=== PATIENT | male | born 1960 | race Caucasian/White ===

== ENCOUNTER → 2017-05-27 | Outpatient (CLI) | payer OTHER ==
--- NOTE | 2017-05-28 17:12 | RADIOLOGY REPORT (SQ) ---
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 TECHNIQUE: Blood glucose level was verified. Above dose of FDG was injected intravenously. 2-D seg mented attenuation correction images were obtained from the base of the skull to the midthighs. Nonc ontrast CT images were obtained for attenuation correction and fusion with emission images. CT image s were performed without oral or intravenous contrast and are not sensitive for parenchymal lesions. A series of overlapping emission PET images were obtained. [facility] by the radiologist. Images stored on PACS. LIMITATIONS: None. FINDINGS: HEAD AND NECK: No areas of abnormal metabolic activity in the soft tissues of the head and neck. CHEST: No areas of abnormal metabolic activity in the chest. ABDOMEN AND PELVIS: No areas of abnormal metabolic activity in the abdomen or pelvis. Expected physi ologic activity is present in the genitourinary system and bowel. PROXIMAL LOWER EXTREMITIES: No areas of abnormal metabolic activity in the soft tissues of the lower extremities. BONES: No abnormal metabolic activity in the visualized skeleton. ADDITIONAL CT FINDINGS: No additional significant findings on the noncontrast CT images. OTHER: Blood pool activity SUV 1.8. Liver parenchymal background activity SUV 2.8. IMPRESSION: No hypermetabolic lesions worrisome for recurrent lymphoma. TECHNICAL DOCUMENTATION: JOB ID: [id number]- All Rights Reserved
== END ==
LOC: RAD 17:10
PROVIDERS: ATTEND Internal Medicine
DX: C82.18 Follicular lymphoma grade II, lymph nodes of multiple sites (principal)
CPT/HCPCS: 78815; A9552

== ENCOUNTER → 2019-02-09 | Outpatient (CLI) | payer OTHER ==
--- NOTE | 2019-02-10 10:46 | RADIOLOGY REPORT (SQ) ---
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 RADIONUCLIDE AND DOSE: 10 mCi F18 FDG The route of agent administration: Intravenous FASTING BLOOD SUGAR: 96 mg/dl CONTRAST TYPE AND DOSE: No CT contrast given. TECHNIQUE: Blood glucose level was verified. Above dose of FDG was injected intravenously. 2-D seg mented attenuation correction images were obtained from the base of the skull to the midthighs. Nonc ontrast CT images were obtained for attenuation correction and fusion with emission images. CT image s were performed without oral or intravenous contrast and are not sensitive for parenchymal lesions. A series of overlapping emission PET images were obtained. Images reviewed and manipulated at [facility] work [facility] by the radiologist. Images stored on PACS. LIMITATIONS: None. FINDINGS: HEAD AND NECK: No areas of abnormal metabolic activity in the soft tissues of the head and neck. CHEST: No areas of abnormal metabolic activity in the chest. ABDOMEN AND PELVIS: There is hazy appearance of the mesentery consistent with edema/inflammation. Th ere are numerous mesenteric lymph nodes which have increased in size since the prior PET scan. A few individual lymph nodes as follows: Image 154, lymph node measures 0.8 x 1.7 cm. Mean SUV 1.51. Image 170, lymph node measures 2.0 cm. Mean SUV 2.05. Image 177, lymph node measures 1.3 x 1.9 cm. Mean SUV 1.7. Image 184, lymph node measures 1.0 x 1.4 cm. Mean SUV 1.44. There is an enlarged lymph node in the left groin measuring 2.6 x 3.6 cm. Mean SUV 13.72. No other areas of abnormal metabolic activity in the abdomen or pelvis. Expected physiologic activit y is present in the genitourinary system and bowel. PROXIMAL LOWER EXTREMITIES: No areas of abnormal metabolic activity in the soft tissues of the lower extremities. BONES: There is focal increased activity in the body of L1. No abnormal appearance on CT imaging. ADDITIONAL CT FINDINGS: No additional significant findings on the noncontrast CT images. OTHER: Background blood pool activity mean SUV 1.8. Background liver activity mean SUV 2.33. No oth er significant findings. IMPRESSION: 1. ENLARGED HYPERMETABOLIC LYMPH NODE IN THE LEFT GROIN WITH MARKEDLY ELEVATED SUV CONSISTENT WITH MA LIGNANCY. 2. INTERVAL DEVELOPMENT OF MESENTERIC ADENOPATHY WITH MILDLY ELEVATED SUV VALUES ABOVE. 3. FOCAL AREA OF INCREASED ACTIVITY IN THE BODY OF L 1. NO ASSOCIATED ABNORMALITY ON CT IMAGES. REC OMMEND FOLLOW-UP WITH MRI OF THE LUMBAR SPINE. 4. NO OTHER AREAS OF ABNORMAL ACTIVITY ON PET IMAGING. TECHNICAL DOCUMENTATION: JOB ID: [id number] [employer]- All Rights Reserved Reading location - IP/workstation name: [email or web address]
== END ==
LOC: RAD 17:45
PROVIDERS: ATTEND Internal Medicine
DX: C82.18 Follicular lymphoma grade II, lymph nodes of multiple sites (principal)
CPT/HCPCS: 78815; A9552

== ENCOUNTER 2019-02-26 05:32 | Day surgery (SDC) | payer OTHER ==
[2019-02-21 09:46] LABS: HEMATOCRIT 41.6 % (37.9-51.0); HEMOGLOBIN 14.3 g/dL (13.5-17.0); MEAN CORPUSCULAR HGB CONC 34.3 g/dL (32.0-36.0); MEAN CORPUSCULAR VOLUME 87 fl (80-97); PLATELET COUNT 287 10^3/uL (150-450); RED BLOOD COUNT 4.76 10^6/uL (4.35-5.55); RED CELL DISTRIBUTION WIDTH 13.3 % (11.5-14.0); WHITE BLOOD COUNT 7.4 10^3/uL (4.0-10.5)
[2019-02-21 10:20] LABS: ANION GAP 9 (5-19); BLOOD UREA NITROGEN 12 mg/dL (7-20); CALCIUM 9.5 mg/dL (8.4-10.2); CARBON DIOXIDE 28 mmol/L (22-30); CHLORIDE 101 mmol/L (98-107); GLUCOSE 90 mg/dL (75-110); POTASSIUM 4.7 mmol/L (3.6-5.0); SODIUM 138.3 mmol/L (137-145)
--- NOTE | 2019-02-21 10:33 | RADIOLOGY REPORT (SQ) ---
EXAM DESCRIPTION: CHEST PA/LATERAL COMPLETED DATE/TIME: 02/21/2019 9:22 am REASON FOR STUDY: PRE OP COMPARISON: None. EXAM PARAMETERS: NUMBER OF VIEWS: two views TECHNIQUE: Digital Frontal and Lateral radiographic views of the chest acquired. RADIATION DOSE: NA LIMITATIONS: none FINDINGS: LUNGS AND PLEURA: No opacities, masses or pneumothorax. No pleural effusion. MEDIASTINUM AND HILAR STRUCTURES: No masses or contour abnormalities. HEART AND VASCULAR STRUCTURES: Heart normal size. No evidence for failure. BONES: No acute findings. HARDWARE: None in the chest. OTHER: No other significant finding. IMPRESSION: NO SIGNIFICANT RADIOGRAPHIC FINDING IN THE CHEST. TECHNICAL DOCUMENTATION: JOB ID: [id number] [employer]- All Rights Reserved Reading location - IP/workstation name: [email or web address]
--- NOTE | 2019-02-21 19:19 | EKG REPORT ---
SEVERITY:- NORMAL ECG - SINUS RHYTHM : Confirmed by: Alysha Tran MD 21-Feb-2019 19:18:28
[~2019-02-26 05:32] MED LIST: ACETAMINOPHEN 325 MG TABLET ONE; ACETAMINOPHEN 325 MG TABLET PO PRN; LACTATED RINGERS 1000 ML IV PRN; LIDOCAINE 0.5% INJ-PF (5 MG/ML) 50 ML SDV SUBCUT PRN; PREGABALIN 50 MG CAPSULE ONE; PREGABALIN 50 MG CAPSULE PO PRN
[2019-02-26 06:50] LABS: INTERNATIONAL RATION (INR) 1.09; PROTHROMBIN TIME 14.1 SEC (11.4-15.4)
[2019-02-26 06:51] LABS: PARTIAL THROMBOPLASTIN TIME 33.2 SEC (23.5-35.8)
[2019-02-26] MEDS ORDERED: MIDAZOLAM 2 MG/2 ML INJ ONE (07:05)
[2019-02-26] MEDS ORDERED: PROPOFOL INJ 200 MG/20 ML VIAL IV ONE (07:05)
[2019-02-26] MEDS ORDERED: KETOROLAC TROMETHAMINE 60 MG/2 ML SDV ONE (07:05)
[2019-02-26] MEDS ORDERED: FENTANYL CITRATE INJ/PF 100 MCG/2 ML AMPUL ONE (07:05)
[2019-02-26] MEDS ORDERED: DEXAMETHASONE SOD PHOSPHATE INJ 4 MG/1 ML VIAL ONE (07:05)
[2019-02-26] MEDS ORDERED: ONDANSETRON HCL INJ/PF 4 MG/2 ML SDV ONE (07:05)
[2019-02-26] MEDS ORDERED: LIDOCAINE 2% INJ (20 MG/ML) 20 ML MDV ONE (07:07)
[2019-02-26] MEDS ORDERED: BUPIVACAINE HCL 0.25 % INJ/PF (2.5 MG/1 ML) 30 ML VIAL ONE (07:16)
[2019-02-26] MEDS ORDERED: LIDOCAINE 1% INJ-PF (10 MG/ML) 30 ML SDV ONE (07:17)
[2019-02-26] MEDS ORDERED: CEFAZOLIN 2 GM/D5W RTU 2 GM/50 ML RTUPB IV ONE ×2 (07:26→08:00)
[2019-02-26] MEDS ORDERED: ONDANSETRON HCL INJ/PF 4 MG/2 ML SDV IV PRN (07:45)
[2019-02-26] MEDS ORDERED: FENTANYL CITRATE INJ/PF 100 MCG/2 ML AMPUL IV PRN ×3 (07:45)
[2019-02-26] MEDS ORDERED: PROMETHAZINE HCL INJ 25 MG/1 ML VIAL IV PRN (07:45)
[2019-02-26] MEDS ORDERED: DIPHENHYDRAMINE HCL 50 MG/ML VIAL IV PRN (07:45)
[2019-02-26] MEDS ORDERED: MORPHINE SULFATE 10 MG/ML INJ IV PRN (07:45)
[2019-02-26] MEDS ORDERED: MEPERIDINE HCL/PF INJ 25 MG/1 ML DISP.SYRIN IV PRN (07:45)
--- NOTE | 2019-02-26 08:59 | Discharge Summary ---
Discharge Summary (SDC) - Discharge Final Diagnosis: Lymphoma Date of Surgery: 02/26/19 Discharge Date: 02/26/19 Condition: Stable Treatment or Instructions: Discharge home. Diet as tolerated. Activity: Nonstrenuous. Follow-up with me in 7 to 10 days. [place] 5/325 mg p.o. every 6 hours as needed for pain. Avoid ibuprofen, Aleve, or other NSAIDs. Okay to shower in 48 hours. No tub baths or swimming pools x2 weeks. Referrals: BONNIE KAN MD [Primary Care Provider] - Discharge Diet: As Tolerated Respiratory Treatments at Home: Deep Breathing/Coughing, Incentive Spirometer Discharge Activity: Balance Activity w/Rest Home Care Assistance: None Needed Report the Following to Your Physician Immediately: Shortness of Breath, Nausea, Vomiting, Increase in Pain, Fever over 101 Degrees, Unusual Bleeding, Redness
--- NOTE | 2019-02-26 09:51 | Operative Report ---
Nonrecallable Operative Report DATE OF SURGERY: 02/26/19 PREOPERATIVE DIAGNOSIS: Lymphoma POSTOPERATIVE DIAGNOSIS: Same as above OPERATION: Excisional biopsy of left groin lymph node SURGEON: CHRIS BEY [facility] CL[facility]ICAL NURSE SPECIALIST: LORETA VÁZQUEZ ANESTHESIA: LMAC TISSUE REMOVED OR ALTERED: Left groin lymph node COMPLICATIONS: None apparent ESTIMATED BLOOD LOSS: Minimal PROCEDURE: Drains/implants: None. Procedure in detail: After informed consent was obtained, the patient was brought to the operating room and laid in the supine position. The area of the left groin was prepped and draped in a normal sterile fashion a 15 blade scalpel was used to make a 4 cm incision in the left groin. Dissection was carried through the subcutaneous tissue using Bovie electrocautery. The enlarged lymph node was easily palpable. It was freed from the surrounding tissues using electrocautery and blunt dissection. The stalk of the lymph node was ligated using 2-0 Vicryl ties. The enlarged lymph node was removed from the patient, passed off the field, and sent to pathology. Hemostasis was achieved using 3-0 Vicryl suture. The subcutaneous layer was closed using 3-0 Vicryl suture in simple interrupted fashion. The overlying skin was closed using 4-0 Vicryl Rapide suture in subcuticular fashion. All sponge, instrument, and needle counts were correct x2. Condition: Stable. Loreta Vázquez PA-C was scrubbed and present the entirety the procedure. She assisted with all portions of the procedure including opening of the skin, dissection of the lymph node, removal of the lymph node, closure of the subcutaneous tissue, and closure of the skin.
[2019-02-26 10:20] VITALS: BP 118/77
== END 2019-02-26 09:55 | disposition home or self-care (01) ==
LOC: OROUT 05:32
PROVIDERS: ATTEND Surgery
DX: R59.9 Enlarged lymph nodes, unspecified (principal); C82.10 Follicular lymphoma grade II, unspecified site; Z95.5 Presence of coronary angioplasty implant and graft; Z79.82 Long term (current) use of aspirin; Z79.899 Other long term (current) drug therapy
CPT/HCPCS: 93005; 36415 ×2; 85027; 85610; 85730; 80048; 88305 ×2; 71046; 93010; 00800; 38500; J2250; J3490 ×3; J3010; J2405; J2704; J0690; 800; J1100; J1885

== ENCOUNTER → 2019-08-05 | Outpatient (CLI) | payer OTHER ==
--- NOTE | 2019-08-06 09:44 | RADIOLOGY REPORT (SQ) ---
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 RADIONUCLIDE AND DOSE: 11.32 mCi F18 FDG The route of agent administration: Intravenous FASTING BLOOD SUGAR: 100 mg/dl CONTRAST TYPE AND DOSE: No CT contrast given. TECHNIQUE: Blood glucose level was verified. Above dose of FDG was injected intravenously. 2-D seg mented attenuation correction images were obtained from the base of the skull to the midthighs. Nonc ontrast CT images were obtained for attenuation correction and fusion with emission images. CT image s were performed without oral or intravenous contrast and are not sensitive for parenchymal lesions. A series of overlapping emission PET images were obtained. Images reviewed and manipulated at [facility] work station by the radiologist. Images stored on PACS. LIMITATIONS: None. FINDINGS: HEAD AND NECK: No areas of abnormal metabolic activity in the soft tissues of the head and neck. CHEST: No areas of abnormal metabolic activity in the chest. ABDOMEN AND PELVIS: The liver demonstrates heterogeneous non focal FDG uptake with an average SUV of 2 (compared to 2.3 on the prior PET). The conglomerate of mesenteric lymph nodes on image 163 of ser ies 3 measures 3.6 x 2.8 cm compared to 3.8 x 2.9 cm on the prior PET and has a recorded maximum SUV of 4 compared to 3.3 on the prior PET. The enlarged mesenteric lymph node on image 154 series 3 has also decreased in size and it measures 1.7 cm in short axis diameter compared to 1.9 and it demonstra yonathan no abnormal FDG uptake. The degree of FDG uptake within the conglomerate of lymph nodes on image 173 of series 3 has increased from the prior PET and it has a recorded maximum SUV of 5.9. There ar e 2 separate focal areas of increased FDG uptake within the right lower quadrant that appear to corre spond to adjacent nodules that measure up to 2.2 cm in diameter (image 180 and 183 of series 3) ; the maximum SUV in the purported nodules equals 5.7. The enlarged 1.4 cm short axis left periaortic lym ph node on image 154 series 3 has increased in size from the prior PET and it is newly hypermetabolic with a maximum recorded SUV of 4.3. The abnormal focal FDG uptake lateral to the L5 vertebral body (image 189 of series 3) is new from 02/09/2019 and could represent abnormal activity within an enlarged left internal iliac lymph node. There are enlarged and hypermetabolic left deep inguinal lymph node s that have increased in size from 02/09/2019 and measure up to 14 mm in short axis diameter ; the maxi mum recorded SUV of the nodules equals 13.2. The size and degree of FDG uptake within the left super ficial inguinal lymph node on image 215 of series 3 have both decreased in the interim (the nodule me asures 1.3 cm in short axis diameter compared to 2.7 cm and the maximum SUV uptake of the node equals 8 compared to 17.2). In contradistinction, the left superficial inguinal lymph node on image 218 of series 3 has increased in size in the interim and is newly hypermetabolic ; the node measures 1.4 cm in short axis diameter and the maximum recorded SUV of the nodule equals 8.1. PROXIMAL LOWER EXTREMITIES: No areas of abnormal metabolic activity in the soft tissues of the lower extremities. BONES: The degree of FDG uptake within the L1 vertebral body has increased from the prior PET ; the m aximum SUV equals 7.9 compared to 6.2. ADDITIONAL CT FINDINGS: The heart is enlarged. There is atherosclerotic calcification of the coronar y arteries. There is no pericardial effusion. The spleen measures 12 cm in AP diameter. There is n o hydronephrosis, nephrolithiasis, hydroureter or ureterolithiasis. The prostate gland is enlarged a nd heterogeneous. The wall of the urinary bladder is diffusely thickened. There is colonic divertic ulosis without diverticulitis. The mass the appearance of the mesentery is unchanged. OTHER: No other findings. IMPRESSION: Findings as above are consistent with metabolic progression of disease. TECHNICAL DOCUMENTATION: JOB ID: [id number] [employer]- All Rights Reserved Reading location - IP/workstation name: [email or web address]
== END ==
LOC: RAD 08:41
PROVIDERS: ATTEND Internal Medicine
DX: C82.18 Follicular lymphoma grade II, lymph nodes of multiple sites (principal)
CPT/HCPCS: 78815; A9552

== ENCOUNTER → 2019-08-14 | Outpatient (CLI) | payer OTHER ==
--- NOTE | 2019-08-15 10:30 | RADIOLOGY REPORT (SQ) ---
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 Coronal T2/HASTE imaging. CONTRAST TYPE AND DOSE: 15 mL Dotarem. RENAL FUNCTION: Not indicated. ACR Type II contrast agent associated with few, if any, unconfounded cases of NSF LIMITATIONS: None. FINDINGS: VISUALIZED UPPER ABDOMEN: There is a 12.4 mm old left retroperitoneal lymph node. This de monstrates mild enhancement. This most likely represents metastatic disease. SEGMENTATION: No transitional anatomy. The lowest well-developed disc space is labeled L5-S1. ALIGNMENT: Anatomic. VERTEBRAE: Intact. No fractures. BONE MARROW: Abnormal marrow so involving the body of L1. Findings are consistent with neoplasm. Mi ld endplate changes at L4-L5 and L5-S1. DISC SIGNAL: Loss of normal water signal throughout the lumbar spine consistent with desiccation. Th ere is disc space narrowing as well. POSTERIOR ELEMENTS: Generally intact. No pars defect evident. HARDWARE: None in the spine. CORD AND CONUS: Normal in size and signal intensity. Conus at the appropriate level. SOFT TISSUES: No aortic aneurysm seen. No bulky retroperitoneal adenopathy or mass. No paraspinal mas s or fluid. L1-L2: No significant spinal stenosis or exit foraminal stenosis. L2-L3: No significant spinal stenosis or exit foraminal stenosis. L3-L4: Bilateral facet arthropathy. No central stenosis or nerve root impingement. L4-L5: Annular bulging at L4-L5. Bilateral facet arthropathy. No significant central stenosis or ne rve root impingement. L5-S1: No significant spinal stenosis or exit foraminal stenosis. LOWER THORACIC: Incompletely imaged. No stenosis seen. SACRUM: Visualized upper sacrum intact. ENHANCEMENT: There is abnormal enhancement involving the body of L1. OTHER: No other significant findings. IMPRESSION: 1. Metastatic disease involving the body of L1 as described on recent PET-CT. 2. Enlarged left retroperitoneal lymph node consistent with metastatic disease. 3. Mild multilevel spondylosis. No high-grade stenosis or evidence of nerve root impingement. TECHNICAL DOCUMENTATION: JOB ID: [id number] [employer] [facility] [employer]- All Rights Reserved Reading location - IP/workstation name: [email or web address]
== END ==
LOC: RAD 15:25
PROVIDERS: ATTEND Internal Medicine
DX: C82.18 Follicular lymphoma grade II, lymph nodes of multiple sites (principal)
CPT/HCPCS: 82565; 72158; A9576

== ENCOUNTER → 2019-11-24 | Outpatient (CLI) | payer OTHER ==
--- NOTE | 2019-11-24 12:23 | RADIOLOGY REPORT (SQ) ---
EXAM DESCRIPTION: CT ABD/PELVIS WITH IV ONLY COMPLETED DATE/TIME: 11/24/2019 10:28 am REASON FOR STUDY: FOLLICULAR LYMPHOMA GRADE II, LYMPH NODES OF MULTIPLE SITES C82.18 FOLLICULAR LYM PHOMA GRADE II, LYMPH NODES OF MULTIPLE COMPARISON: PET-CT 08/05/2019 TECHNIQUE: CT scan of the abdomen and pelvis performed using helical scanning technique with dynamic intravenous contrast injection. No oral contrast. Images reviewed with lung, soft tissue, and bone windows. Reconstructed coronal and sagittal MPR images reviewed. Delayed images for evaluation of the urinary system also acquired. All images stored on PACS. All CT scanners at this facility use dose modulation, iterative reconstruction, and/or weight based d osing when appropriate to reduce radiation dose to as low as reasonably achievable (ALARA). [facility]: Dose Right [facility]: CareDose [facility]: Dose Right [facility]: Teradose 4D [facility]: [employer] Systems CONTRAST TYPE AND DOSE: contrast/concentration: Isovue 350.00 mg/ml; Total Contrast Delivered: 94.0 ml; Total Saline Delivered: 71.0 ml RENAL FUNCTION: GFR > 60. RADIATION DOSE: . LIMITATIONS: None. FINDINGS: LOWER CHEST: See separate report of the CT of the chest. LIVER: Normal size. No masses. No dilated ducts. SPLEEN: Normal size. No focal lesions. PANCREAS: No masses. No significant calcifications. No adjacent inflammation or peripancreatic fluid collections. Pancreatic duct not dilated. GALLBLADDER: No identified stones by CT criteria. No inflammatory changes to suggest cholecystitis. ADRENAL GLANDS: No significant masses or asymmetry. RIGHT KIDNEY AND URETER: No solid masses. No significant calcifications. No hydronephrosis or hyd roureter. LEFT KIDNEY AND URETER: No solid masses. No significant calcifications. No hydronephrosis or hydr oureter. AORTA AND VESSELS: No aneurysm. No dissection. Renal arteries, SMA, celiac without stenosis. RETROPERITONEUM: No retroperitoneal adenopathy, hemorrhage or masses. BOWEL AND PERITONEAL CAVITY: No masses or inflammatory changes. No free fluid or peritoneal masses. APPENDIX: Normal. PELVIS: No mass. No free fluid. Normal bladder. ABDOMINAL WALL: No masses. No hernias. BONES: No significant or acute findings. OTHER: No other significant finding. IMPRESSION: Excellent response to therapy. No adenopathy. TECHNICAL DOCUMENTATION: JOB ID: [id number] Quality ID # [id number]: Final reports with documentation of one or more dose reduction techniques (e.g., Au tomated exposure control, adjustment of the mA and/or kV according to patient size, use of iterative reconstruction technique) 2010 [employer]- All Rights Reserved Reading location - IP/workstation name: [email or web address]
--- NOTE | 2019-11-24 12:26 | RADIOLOGY REPORT (SQ) ---
EXAM DESCRIPTION: CT CHEST WITH COMPLETED DATE/TIME: 11/24/2019 10:27 am REASON FOR STUDY: FOLLICULAR LYMPHOMA GRADE II, LYMPH NODES OF MULTIPLE SITES C82.18 FOLLICULAR LYM PHOMA GRADE II, LYMPH NODES OF MULTIPLE COMPARISON: None. TECHNIQUE: CT scan of the chest performed using helical scanning technique with dynamic intravenous contrast injection. Images reviewed with lung, soft tissue and bone windows. Reconstructed coronal and sagittal MPR and MIP images reviewed. All images stored on PACS. All CT scanners at this facility use dose modulation, iterative reconstruction, and/or weight based d osing when appropriate to reduce radiation dose to as low as reasonably achievable (ALARA). [facility]: Dose Right [facility]: CareDose [facility]: Dose Right [facility]: Teradose 4D [facility]: [employer] CONTRAST TYPE AND DOSE: 94 mL Omnipaque 350- low osmolar. RENAL FUNCTION: BUN 18 creatinine 0.9 RADIATION DOSE: CT Rad equipment meets quality standard of care and radiation dose reduction techniq ues were employed. CTDIvol: 5.7 - 8.6 mGy. DLP: 1154 mGy-cm. . LIMITATIONS: None. FINDINGS: LUNGS AND PLEURA: No infiltrate, effusion, or mass. HILAR AND MEDIASTINAL STRUCTURES: No identified masses or abnormal nodes. HEART AND VASCULAR STRUCTURES: No aneurysm or dissection. No central pulmonary emboli. No pericardi al effusion. HARDWARE: None in the chest. UPPER ABDOMEN: See separate report of the CT of the abdomen. THYROID AND OTHER SOFT TISSUES: No masses. No adenopathy. BONES: No significant finding. OTHER: No other significant finding. IMPRESSION: NORMAL CT OF THE CHEST WITH IV CONTRAST. TECHNICAL DOCUMENTATION: JOB ID: [id number] Quality ID # [id number]: Final reports with documentation of one or more dose reduction techniques (e.g., Au tomated exposure control, adjustment of the mA and/or kV according to patient size, use of iterative reconstruction technique) 2010 [email or web address]- All Rights Reserved Reading location - IP/workstation name: [email or web address]
== END ==
LOC: RAD 10:06
PROVIDERS: ATTEND Internal Medicine
DX: C82.18 Follicular lymphoma grade II, lymph nodes of multiple sites (principal)
CPT/HCPCS: 71260; 74177

== ENCOUNTER → 2020-03-09 | Outpatient (CLI) | payer OTHER ==
--- NOTE | 2020-03-10 08:59 | RADIOLOGY REPORT (SQ) ---
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 TECHNIQUE: Blood glucose level was verified. Above dose of FDG was injected intravenously. 2-D seg mented attenuation correction images were obtained from the base of the skull to the midthighs. Nonc ontrast CT images were obtained for attenuation correction and fusion with emission images. CT image s were performed without oral or intravenous contrast and are not sensitive for parenchymal lesions. A series of overlapping emission PET images were obtained. Images reviewed and manipulated at [facility] work station by the radiologist. Images stored on PACS. LIMITATIONS: None. FINDINGS: HEAD AND NECK: No areas of abnormal metabolic activity in the soft tissues of the head and neck. CHEST: No areas of abnormal metabolic activity in the chest. No acute intrathoracic findings. Coron emiliano atherosclerosis. Minimal dependent hypoventilatory change. ABDOMEN AND PELVIS: Previously seen conglomerate of as enteric lymph nodes within the right abdomen h as largely resolved. There is residual [place] mesentery and shotty nodes within the left upper quadra nt (series 3, image 163) demonstrating mild diffuse activity (max SUV 3.2). The largest discrete nod ule measures approximately 14 mm (series 3, image 163). Previously described soft tissue nodules wit hin the right lower quadrant appear to have resolved. Previously described para-aortic lymph node ibarra s also resolved. Focal uptake along the left L5 vertebral body has also resolved. There is been res olution of previously seen left-sided external iliac hypermetabolic adenopathy and a left inguinal ad enopathy. Largest left inguinal node measures 7 mm in short axis, previously 14 mm (series 3, image 229). No new discrete pathologic uptake within the abdomen or pelvis. Physiologic activity within t he gastrointestinal and genitourinary system. No evidence of acute intra-abdominal/pelvic process. Residual mesenteric stranding and shotty nodes within the left upper quadrant. Resolution of previou sly seen lymph node conglomerate as above. Resolution of left iliac and inguinal lymphadenopathy. D ecompressed bladder with circumferential wall thickening. Bilateral inguinal hernias containing fat. Prostatomegaly. PROXIMAL LOWER EXTREMITIES: No areas of abnormal metabolic activity in the soft tissues of the lower extremities. BONES: Previously-seen activity within the L1 vertebral body has largely resolved (max SUV 2.6, previ ously 7.9). There is faint sclerosis within these vertebral body. No new osseous pathologic uptake. ADDITIONAL CT FINDINGS: As above. OTHER: Background hepatic activity max SUV 3.1. IMPRESSION: 1. Markedly decreased size and activity of multiple hypermetabolic mesenteric, retroper itoneal and pelvic lymph nodes as detailed above and compatible with favorable response to therapy. Mild residual mesenteric stranding and shotty nodes within the left upper quadrant with mild uptake ( max SUV 3.2, background hepatic activity max SUV 3.1). 2. Resolution of previously seen pathologic uptake within the L1 vertebral body. 3. No new hypermetabolic activity throughout remainder of the exam. TECHNICAL DOCUMENTATION: JOB ID: [id number] 2010 [employer]- All Rights Reserved Reading location - IP/workstation name: [email or web address]
== END ==
LOC: RAD 08:07
PROVIDERS: ATTEND Physician Assistant Medical
DX: C82.18 Follicular lymphoma grade II, lymph nodes of multiple sites (principal)
CPT/HCPCS: 78815; A9552

== ENCOUNTER 2020-06-22 07:33 | Day surgery (SDC) | payer OTHER ==
[~2020-06-22 07:33] MED LIST changes: +CEFAZOLIN 2 GM/D5W RTU 2 GM/50 ML RTUPB IV ONE; +CEFAZOLIN 2 GM/D5W RTU 2 GM/50 ML RTUPB IV PRN; -PREGABALIN 50 MG CAPSULE ONE; -PREGABALIN 50 MG CAPSULE PO PRN
[2020-06-22] MEDS ORDERED: MIDAZOLAM 2 MG/2 ML INJ ONE (07:38)
[2020-06-22] MEDS ORDERED: FENTANYL CITRATE INJ/PF 100 MCG/2 ML AMPUL ONE (07:38)
[2020-06-22] MEDS ORDERED: LIDOCAINE 2% INJ-PF (20 MG/ML) 10 ML AMPUL ONE (07:38)
[2020-06-22] MEDS ORDERED: PROPOFOL INJ 200 MG/20 ML VIAL IV ONE (07:39)
[2020-06-22] MEDS ORDERED: BUPIVACAINE HCL 0.25 % INJ/PF (2.5 MG/1 ML) 30 ML VIAL ONE (07:54)
[2020-06-22] MEDS ORDERED: LIDOCAINE 1% INJ-PF (10 MG/ML) 30 ML SDV ONE (07:54)
[2020-06-22] MEDS ORDERED: ONDANSETRON HCL INJ/PF 4 MG/2 ML SDV IV PRN (09:40)
[2020-06-22] MEDS ORDERED: MEPERIDINE HCL/PF INJ 25 MG/1 ML DISP.SYRIN IV PRN (09:40)
[2020-06-22] MEDS ORDERED: OXYCODONE-ACETAMINOPHEN 5-325 MG TABLET PO PRN ×2 (09:40)
[2020-06-22] MEDS ORDERED: FENTANYL CITRATE INJ/PF 100 MCG/2 ML AMPUL IV PRN ×3 (09:40)
[2020-06-22] MEDS ORDERED: MORPHINE SULFATE 10 MG/ML INJ IV PRN (09:40)
[2020-06-22] MEDS ORDERED: PROMETHAZINE HCL INJ 25 MG/1 ML VIAL IV PRN ×2 (09:40)
[2020-06-22] MEDS ORDERED: DIPHENHYDRAMINE HCL 50 MG/ML VIAL IV PRN (09:40)
--- NOTE | 2020-06-22 09:58 | Discharge Summary ---
Discharge Summary (SDC) - Discharge Final Diagnosis: lymphoma Date of Surgery: 06/22/20 Discharge Date: 06/22/20 Condition: Stable Treatment or Instructions: Discharge home. Diet as tolerated. Activity: Nonstrenuous. Follow-up with me as needed. Okay to use Mediport. Okay to shower starting on . No tub baths, swimming pools, or hot tubs x2 weeks. Prescriptions: Hydrocodone/Acetaminophen [[place] 5-325 mg Tablet] 1 tab PO Q6HP PRN #10 tablet PRN Reason: For Pain Referrals: BONNIE KAN MD [Primary Care Provider] - Discharge Diet: As Tolerated Respiratory Treatments at Home: Deep Breathing/Coughing, Incentive Spirometer Discharge Activity: Balance Activity w/Rest Home Care Assistance: None Needed Report the Following to Your Physician Immediately: Shortness of Breath, Nausea, Vomiting, Fever over 101 Degrees, Unusual Bleeding, Redness
--- NOTE | 2020-06-22 10:02 | Operative Report ---
Nonrecallable Operative Report DATE OF SURGERY: 06/22/20 PREOPERATIVE DIAGNOSIS: 1. Lymphoma. 2. Phlebosclerosis. POSTOPERATIVE DIAGNOSIS: Same as above OPERATION: 1. Ultrasound-guided central venous puncture. 2. Left internal jugular vein Mediport placement. SURGEON: CHRIS BEY ANESTHESIA: LMAC TISSUE REMOVED OR ALTERED: None COMPLICATIONS: None apparent ESTIMATED BLOOD LOSS: Minimal PROCEDURE: Drains/implants: Left internal jugular vein Mediport placement. Procedure in detail: After informed consent was obtained, the patient was brought to the operating room and laid in the Trendelenburg position. The area of the neck and chest were prepped and draped in a normal sterile fashion. The ultrasound was used to identify the left internal jugular vein. It was compressible with normal flow. Under direct ultrasonic guidance, the left internal jugular vein was cannulated using the supplied access needle. The wire was inserted into the vein easily. The wire was confirmed to be within the lumen of the vein using the ultrasound device, as well as fluoroscopy. Picture documentation was obtained, and placed on the chart. Next, a separate incision was created in the left chest wall to accommodate the Mediport hub. The catheter was tunneled from the Mediport hub site to the needle insertion site. The dilator and breakaway sheath were inserted over the wire. This was done under direct fluoroscopic guidance. The dilator and wire were removed, leaving the sheath within the SVC. The catheter was inserted into the sheath. The sheath was cracked and pulled away, leaving the catheter within the SVC. The catheter was pulled back to an appropriate level. The catheter was trimmed to length. The Mediport hub was attached to the catheter. The hub was buried within the pocket. The hub was sutured to the chest wall using 3-0 Vicryl suture. The hub was then accessed. The hub flushed easily with heparinized saline. Next, the subcutaneous tissues were closed using 3-0 Vicryl suture in simple running fashion. The overlying skin was closed with 4-0 Vicryl Rapide suture in subcuticular fashion. Dressings were placed, and the procedure was concluded. All sponge, instrument, needle counts were correct x2. Condition: Stable.
[2020-06-22] MEDS ORDERED: HYDROCODONE/ACETAMINOPHEN 10-325 MG TABLET PO PRN (10:19)
--- NOTE | 2020-06-22 10:52 | RADIOLOGY REPORT (SQ) ---
EXAM DESCRIPTION: FLUORO/CV PLACEMENT IMAGES COMPLETED DATE/TIME: 06/22/2020 10:08 am REASON FOR STUDY: MEDIPORT PLCMT LEFT SIDE ASSISTED WITH FLUORO IN OR C85.90 NON-HODGKIN LYMPHOMA, UNSPECIFIED, UNSPECIFIED SITE Z95.828 PRESENCE OF OTHER VASCULAR IMPLANTS AND GRAFTS COMPARISON: None. FLUOROSCOPY TIME: 0.6 minutes. 2 images saved to PACS. TECHNIQUE: Intra-operative images acquired during surgical procedure to evaluate progress. NUMBER OF IMAGES: 2 images. LIMITATIONS: None. FINDINGS: Images of the upper chest acquired during port placement. IMPRESSION: IMAGE(S) OBTAINED DURING PROCEDURE. COMMENT: Quality ID [id number]: Final reports for procedures using fluoroscopy that document radiation exp osure indices, or exposure time and number of fluorographic images (if radiation exposure indices are not available) Please consult full operative report of the attending physician for description of the procedure. TECHNICAL DOCUMENTATION: JOB ID: [id number] 2010 [employer]- All Rights Reserved Reading location - IP/workstation name: [email or web address]
--- NOTE | 2020-06-22 10:53 | RADIOLOGY REPORT (SQ) ---
EXAM DESCRIPTION: CHEST SINGLE VIEW IMAGES COMPLETED DATE/TIME: 06/22/2020 10:40 am REASON FOR STUDY: MEDIPORT PLACEMENT COMPARISON: 02/21/2019. EXAM PARAMETERS: NUMBER OF VIEWS: One view. TECHNIQUE: Single frontal radiographic view of the chest acquired. RADIATION DOSE: NA LIMITATIONS: None. FINDINGS: LUNGS AND PLEURA: Linear atelectasis in the left lower lobe. No infiltrates, masses or pn eumothorax. No pleural effusion. MEDIASTINUM AND HILAR STRUCTURES: No masses. Contour normal. HEART AND VASCULAR STRUCTURES: Heart normal in size. Normal vasculature. BONES: No acute findings. HARDWARE: Vascular port, tip at the level of the superior vena cava. OTHER: No other significant finding. IMPRESSION: NO PNEUMOTHORAX FOLLOWING PORT PLACEMENT. TECHNICAL DOCUMENTATION: JOB ID: [id number] 2010 [employer]- All Rights Reserved Reading location - IP/workstation name: [email or web address]
[2020-06-22 12:46] VITALS: BP 134/86
== END 2020-06-22 11:40 | disposition home or self-care (01) ==
LOC: OROUT 07:33
PROVIDERS: ATTEND Surgery
DX: C85.90 Non-Hodgkin lymphoma, unspecified, unspecified site (principal); I87.8 Other specified disorders of veins; E78.00 Pure hypercholesterolemia, unspecified; Z03.818 Encounter for observation for suspected exposure to other biological agents ruled out; G62.9 Polyneuropathy, unspecified; Z79.899 Other long term (current) drug therapy; Z95.5 Presence of coronary angioplasty implant and graft; Z79.82 Long term (current) use of aspirin
CPT/HCPCS: 71045; 77001; 36561; U0003; J2250; J3010; J3490 ×2; J2704; J0690; J1642; C9803; 87635; C1788